=== PATIENT | female | born 1970 | race Caucasian/White ===

== ENCOUNTER 2021-10-17 16:44 | Emergency (ER) | payer OTHER ==
[~2021-10-17] VITALS: Ht 160 cm; Wt 78.6 kg
[~2021-10-17 16:44] MED LIST: CITA20TA28 PO; COM10T PO; DIPH-423 PO; DIPH25TA89 PO; ESTR0.6261 PO; IBUP-1984 PO; ONDA4TAB59 PO; SUMA25TA35 PO
[2021-10-17] MEDS ORDERED: naproxen 500mg tablet PO ONE (20:20)
[2021-10-17] MEDS ORDERED: cyclobenzaprine 10mg tablet PO ONE (20:20)
[2021-10-17] MEDS ORDERED: NAPR-56 PO (22:13)
[2021-10-17] MEDS ORDERED: CYCL-1 PO (22:13)
--- NOTE | 2021-10-17 22:30 | NUR ---
Pt given and understands d/c instructions. Ambulatory with a slow steady gait.
[2021-10-17 22:35] VITALS: BP 154/92
== END 2021-10-17 22:30 | disposition home or self-care (01) ==
LOC: ER 16:45
DX: S30.0XXA Contusion of lower back and pelvis, initial encounter (principal); M79.602 Pain in left arm; G43.909 Migraine, unspecified, not intractable, without status migrainosus; F41.9 Anxiety disorder, unspecified; Z88.0 Allergy status to penicillin; Z79.899 Other long term (current) drug therapy; X58.XXXA Exposure to other specified factors, initial encounter; Y93.89 Activity, other specified; Y92.89 Other specified places as the place of occurrence of the external cause; Y99.8 Other external cause status
CPT/HCPCS: 72131; 99284